=== PATIENT | male | born 1965 ===

== ENCOUNTER 2018-06-29 11:21 | Emergency (ER) | payer MEDICAID ==
[~2018-06-29] VITALS: Ht 180.3 cm; Wt 74.5 kg
[2018-06-29] MEDS ORDERED: chlordiazePOXIDE 25mg capsule PO ONE (11:50)
[2018-06-29] MEDS ORDERED: GABA-532 PO (11:56)
[2018-06-29 12:10] VITALS: BP 147/97
== END 2018-06-29 12:22 | disposition home or self-care (01) ==
LOC: ER 11:22
DX: F10.20 Alcohol dependence, uncomplicated (principal); F17.200 Nicotine dependence, unspecified, uncomplicated; F12.90 Cannabis use, unspecified, uncomplicated; Z79.899 Other long term (current) drug therapy; Y90.9 Presence of alcohol in blood, level not specified
CPT/HCPCS: 99283